=== PATIENT | female | born 1935 | race Caucasian/White ===

== ENCOUNTER 2018-10-05 06:48 | Inpatient (IN) ==
--- NOTE | 2018-10-05 08:02 | PROVIDER DOCUMENTATION ---
HPI-Neurological Disorder - General Chief Complaint: General Adult Stated Complaint: possible seizure Time Seen by Provider: 10/05/18 07:29 Source: patient, family Allergies/Adverse Reactions: Patient Allergies Allergy/AdvReac Type Severity Reaction Status Date / Time No Known Allergies Allergy Verified 10/05/18 07:00 - Seizure First time to have a seizure?: Yes Witnessed seizure?: Yes How many seizure episodes?: 1 Episode details: reports: unknown duration Episode Frequency: no prior episodes Status Epilepticus: No Preceding symptoms/context:: other (LUGGISH OR POOR ENERGY PAST 2 DAYS. NO FEVER,COUGH,N/V/D, MAYBE GEN SEIZURE WITNESS [employer] [facility]. PT CAN GIVE OWN HX NOW.) Character of Seizure: reports: generalized shaking all over Seizure related injury: none Review of Systems - Adult - REVIEW OF SYSTEMS - ADULT Constitutional: reports: no symptoms reported. denies: chills, fever Eyes: reports: no symptoms reported Ears, Nose, Mouth & Throat: reports: no symptoms reported Cardiovascular: reports: no symptoms reported Respiratory: reports: no symptoms reported Gastrointestinal: reports: no symptoms reported Genitourinary: reports: no symptoms reported. denies: frequency, urinary retention, urgency Musculoskeletal: reports: no symptoms reported Integumentary: reports: no symptoms reported Neurological: reports: no symptoms reported. denies: headache/migraines, slurred speech Psychiatric: reports: no symptoms reported, other (HX MILD DEMENTIA) Endocrine: reports: no symptoms reported. denies: excessive sweating, polyuria Hematologic/Lymphatic: reports: no symptoms reported Allergic/Immunologic: reports: no symptoms reported All Other Systems: Reviewed and Negative Past History - Adult - PAST MEDICAL HISTORY-ADULT Review of Records: reports: Old Records Reviewed, Nursing Assessment Review, Medications Reviewed, Social history reviewed & non-contributory. Major Childhood Illnesses: reports: denies history Cardiovascular: reports: denies history Respiratory: reports: denies history Gastrointestinal: reports: denies history Obstetrical/Gynecological: reports: denies history Genitourinary: reports: denies history Musculoskeletal: reports: denies history Neurological: reports: denies history Endocrine/Immune: reports: denies history, other (SJOGREN'S SYNDROME AFFECTING LUNGS WELL EYES AND THROAT) Other Conditions: reports: denies history Physical Exam- Neurological - Physical Exam-Neuro Initial Vital Signs Reviewed: Yes (NOTE INITIAL HYPOTENSION , SL TACHY ARE IMPROVING) General Appearance: appears well, alert, no apparent distress Eye Exam: bilateral eye: normal inspection, PERRL, EOMI HENMT: normocephalic/atraumatic, moist mucous membranes Head Injury: no evidence of injury Neck: non-tender, full range of motion, supple Respiratory: chest non-tender, lungs clear, normal breath sounds Cardiovascular: normal peripheral pulses, regular rate, rhythm, no edema, no JVD , no murmur Abdominal Exam: normal bowel sounds, non tender, soft Extremity: normal range of motion, non-tender, normal gait pricing associate Exam: normal hearing, normal speech, PERRL Motor/Sensory: no motor deficit, no sensory deficit Neurologic: pricing associate II-XII nml as tested, grossly normal, no motor/sensory deficits Integumentary: normal color, normal turgor, warm/dry. negative: cyanosis, diaphoresis, ecchymosis, erythema, swelling Psych/Mental Status: normal mood/affect, normal thought content, normal thought process, oriented x 3 Progress - PLAN OF CARE/RESULTS Progress/Plan/Lab Results: Vital Signs - 8 hr 10/05/18 06:57 10/05/18 07:18 10/05/18 07:32 Temperature 98.4 F Pulse Rate 106 H 109 H 124 H Respiratory Rate 22 23 27 H Blood Pressure 84/58 111/58 113/63 O2 Sat by Pulse Oximetry 92 L 91 L 92 L 10/05/18 08:02 10/05/18 08:52 Temperature Pulse Rate 111 H 122 H Respiratory Rate 21 21 Blood Pressure 105/55 104/59 O2 Sat by Pulse Oximetry 90 L 93 L 10/05/18 08:05 Influenza Screen - Final Nasopharyngeal Laboratory Results - last 24 hr 10/05/18 10/05/18 10/05/18 07:16 07:33 07:33 WBC RBC Hgb Hct MCV MCH MCHC RDW Std Deviation Plt Count MPV Immature Gran % (Auto) Neut % (Auto) Lymph % (Auto) [place] % (Auto) Eos % (Auto) Baso % (Auto) Immature Gran # (Auto) Neut # (Auto) Lymph # (Auto) [place] # (Auto) Eos # (Auto) Baso # (Auto) Sodium 136 Potassium 3.1 L Chloride 95 L Carbon Dioxide 17 L Anion Gap 24 BUN 58 H Creatinine 2.0 H Estimated GFR/1.73 m2 24 BUN/Creatinine Ratio 29 Glucose 91 POC Glucose 102 Calculated Osmolality 288 Calcium 8.3 L Magnesium 2.4 Total Bilirubin 0.30 AST 58 H ALT 24 Alkaline Phosphatase 67 Troponin T Eyy-V-Sclruhpfxuh Pept 1965 H Total Protein 7.1 Albumin 4.1 Globulin 3.0 Albumin/Globulin Ratio 1.4 Urine Source Urine Color Urine Turbidity Urine pH Ur Specific Ozone Urine Protein Ur Glucose (Stick) Ur Ketones (Stick) Urine Blood Urine Nitrite Urine Bilirubin Urobilinogen Dipstick Urine Leukocytes Urine WBC (Auto) Urine RBC (Auto) U Epithel Cells (Auto) Urine Bacteria (Auto) Acetone Level NEGATIVE 10/05/18 10/05/18 10/05/18 07:33 08:05 09:28 WBC 8.78 RBC 4.47 Hgb 12.9 Hct 40.0 MCV 89.5 MCH 28.9 MCHC 32.3 L RDW Std Deviation 14.0 Plt Count 146 MPV 10.6 H Immature Gran % (Auto) 0.5 Neut % (Auto) 85.7 H Lymph % (Auto) 5.7 L [place] % (Auto) 8.0 Eos % (Auto) 0.0 Baso % (Auto) 0.1 Immature Gran # (Auto) 0.04 Neut # (Auto) 7.53 H Lymph # (Auto) 0.50 L [place] # (Auto) 0.70 H Eos # (Auto) 0.00 Baso # (Auto) 0.01 Sodium Potassium Chloride Carbon Dioxide Anion Gap BUN Creatinine Estimated GFR/1.73 m2 BUN/Creatinine Ratio Glucose POC Glucose Calculated Osmolality Calcium Magnesium Total Bilirubin AST ALT Alkaline Phosphatase Troponin T 0.058 Cwl-S-Xvbokavyjqg Pept Total Protein Albumin Globulin Albumin/Globulin Ratio Urine Source CLEAN CATCH Urine Color YELLOW Urine Turbidity HAZY Urine pH 5.5 Ur Specific [place] 1.004 Urine Protein 50 A Ur Glucose (Stick) NEGATIVE Ur Ketones (Stick) NEGATIVE Urine Blood MODERATE A Urine Nitrite NEGATIVE Urine Bilirubin NEGATIVE Urobilinogen Dipstick NORMAL Urine Leukocytes NEGATIVE Urine WBC (Auto) <10 Urine RBC (Auto) 10-20 A U Epithel Cells (Auto) <10 Urine Bacteria (Auto) NEGATIVE Acetone Level Orders Category Date Time Status Cardiac Monitoring DIRECTED Care 10/05/18 07:52 Active Finger Stick Blood Sugar (ED) DIRECTED Care 10/05/18 07:52 Active Saline Loc NOW Care 10/05/18 07:52 Active CHEST-PORTABLE [RAD] Stat Exams 10/05/18 07:[address] HEAD W/O CONTRAST [CT] Stat Exams 10/05/18 07:55 Completed ACETONE SERUM [CHEM] Stat Lab 10/05/18 07:33 Completed BLOOD CULTURE [BLDCUL] Stat Lab 10/05/18 09:57 Received CBC WITH ELECTRONIC DIFF [HEME] Stat Lab 10/05/18 08:05 Completed COMPREHENSIVE METABOLIC PANEL [CHEM] Stat Lab 10/05/18 07:33 Completed COMPREHENSIVE METABOLIC PANEL [CHEM] Stat Lab 10/05/18 09:57 Received INFLUENZA SCREEN A/B Stat Lab 10/05/18 08:05 Completed LACTATE, PLASMA [CHEM] Stat Lab 10/05/18 09:57 Received MAGNESIUM [CHEM] Stat Lab 10/05/18 07:33 Completed PRO B-NATRIURETIC PEPTIDE Stat Lab 10/05/18 07:33 Completed TROPONIN T Stat Lab 10/05/18 07:33 Completed TROPONIN T Stat Lab 10/05/18 09:57 Received URINALYSIS W/POSS RFLX CULT [URINALYSIS] Stat Lab 10/05/18 09:26 Uncollected URINALYSIS W/POSS RFLX CULT [URINALYSIS] Stat Lab 10/05/18 09:28 Completed 0.9% Sodium Chloride Inj [Ns] 1,000 ml Med 10/05/18 09:25 Active IV 999 mls/hr Acetaminophen [Tylenol] Med 10/05/18 09:25 Discontinued 650 mg PO NOW ONE Azithromycin 500 mg/Ns [Zithromax 500 mg/Ns] Med 10/05/18 09:25 Active 500 mg in 250 ml IV NOW CefTRIAXONE [Rocephin] 1 gm Med 10/05/18 09:25 Discontinued 0.9% Sodium Chloride Inj [Ns] 50 ml IV NOW Potassium Chloride 20% Liquid Med 10/05/18 10:15 Once 40 meq PO NOW ONE EKG [EKG] Stat Ther 10/05/18 07:52 Ordered Result Diagrams: 10/05/18 08:05 10/05/18 07:33 - XRAY 1 XRAY Study: Chest Impression: Abnormal (RLL PNEUMONIA) - CT/MRI 1 CT Study: Head Impression: Normal, See EMR Report Comparison with other Films: no changes - CONSULTS/PCP/HOSPITALIST Notification #1 *Consult/PCP/Hospitalist*: CONTRERAS ACCEPTS TO DR DIAL Time Discussed: 10:25 Consult Disposition: Admit Departure - Departure Date of Disposition Decision: 10/05/18 Time of Disposition Decision: 10:26 DIAGNOSIS: Pneumonia, Mild renal insufficiency, Hypokalemia, Hypotension, New onset a-fib Disposition: ADMITTED INPATIENT 09 Certified Medical Emergency: Emergent Condition: Fair Referrals and Follow-Ups: Paola Garza MD [Primary Care Provider] - - Critical Care Note This patient required my direct & personal management of CC.: Yes Total Time (mins): 30 Critical Care Statement: This patient required my direct personal management to treat or rule out processes, the absence of which, could potentiallly result in sudden, clinically significant life or limb threatening deterioration. Attestation - Physician/ ELIGIO Attestation The physician spent face to face time with patient:: Yes Advanced Practice Provider documentation review:: Supervising physician onsite and consulted in the evaluation and care of this patient. The physician did have a face to face encounter with the patient.
[2018-10-05 08:21] LABS: BASO# 0.01 X1000 (0.0-0.2); BASO% 0.1 % (0.0-0.8); HEMOGLOBIN 12.9 g/dL (12.0-16.0); IMM GRAN# 0.04 X1000 (0.0-0.04); IMM GRAN% 0.5 % (0.0-0.5); LYMPH% 5.7 % (20.5-51.1); MCH 28.9 PG (27-31); MCHC 32.3 g/dL (33-37); MCV 89.5 FL (81-99); MPV 10.6 FL (7.4-10.4); NEUT# 7.53 X1000 (1.4-6.5); NEUT% 85.7 % (42.2-75.2); PLT 146 X1000 (130-400); RBC 4.47 XMIL (4.2-5.4); WBC 8.78 X1000 (4.8-10.8)
--- NOTE | 2018-10-05 08:36 | Diag Imaging Result Doc PS360 ---
EXAM: CHEST-PORTABLE 10/05/2018 HISTORY: SEIZURE TECHNIQUE: AP portable at 0828 COMMENT: There is ill-defined alveolar opacity in the right lower lobe which is worse than on 12/15/2013. There are other scattered ill-defined opacities. There is an apparent hiatal hernia. IMPRESSION: Right lower lobe pneumonia. Electronically signed by Cale Dorman 10/05/2018 8:34 AM
--- NOTE | 2018-10-05 08:39 | Diag Imaging Result Doc PS360 ---
EXAM: CT HEAD W/O CONTRAST 10/05/2018 HISTORY: SEIZURE TECHNIQUE: This exam was performed using automated exposure control, adjustment of mA or kV according to patient size, and/or use of iterative reconstruction technique. COMMENT: There is generalized mild cerebral atrophy. There is no evidence of mass effect, bleed, or abnormal extra-axial fluid collection. There are no previous studies available for comparison. There are air-fluid levels in both maxillary sinuses as well as areas of mucosal thickening. There is also some mucosal thickening in the ethmoid air cells. There is fluid and mucosal thickening in both sphenoid sinuses. The calvarium is intact. IMPRESSION: No evidence of acute intracranial disease. Sinusitis as described. Electronically signed by Cale Dorman 10/05/2018 8:37 AM
[2018-10-05 08:41] LABS: ACETONE SERUM NEGATIVE (NEGATIVE)
[2018-10-05 09:10] LABS: AGAP 24; ALB/GLOB RATIO 1.4; ALBUMIN 4.1 g/dL (3.5-5.0); ALKALINE PHOSPHATASE 67 U/L (32-104); BUN 58 mg/dL (8-22); CALCIUM 8.3 mg/dL (8.8-10.2); CHLORIDE 95 mmol/L (98-107); COSMO 288; ESTIMATED GFR 24; GLUCOSE 91 mg/dL (70-104); GOT 58 U/L (10-30); GPT 24 U/L (10-36); MAGNESIUM 2.4 mg/dL (1.5-2.7); POTASSIUM 3.1 mmol/L (3.5-5.1); SODIUM 136 mmol/L (136-145); TCO2 17 mmol/L (25-35); TOTAL PROTEIN 7.1 g/dL (6.3-8.3)
[2018-10-05] MEDS ORDERED: ZITHROMAX 500 MG/NS 500 MG/250 ML IVPB IV ONE (09:25)
[2018-10-05] MEDS ORDERED: NS 1,000 ML IV ONE ×3 (09:25→18:59)
[2018-10-05] MEDS ORDERED: ROCEPHIN 1 GM in NS 50 ML IV ONE (09:25)
[2018-10-05] MEDS ORDERED: TYLENOL PO ONE (09:25)
[2018-10-05 09:31] LABS: URINE SOURCE CLEAN CATCH
[2018-10-05 09:37] LABS: BILIRUBIN URINE NEGATIVE (NEGATIVE); BLOOD URINE MODERATE (NEGATIVE); COLOR YELLOW; GLUCOSE URINE NEGATIVE (NEGATIVE); KETONE URINE NEGATIVE (NEGATIVE); LEUKOCYTES URINE NEGATIVE (NEGATIVE); NITRITE URINE NEGATIVE (NEGATIVE); PH URINE 5.5; PROTEIN URINE 50 mg/dL (NEGATIVE); SP GRAVITY URINE 1.004; TURBIDITY URINE HAZY (CLEAR); UROBILINOGEN URINE NORMAL (NORMAL)
[2018-10-05 09:38] LABS: UR EPITHELIAL CELLS <10 /HPF (<10); URINE BACTERIA NEGATIVE /HPF; URINE WBC <10 /HPF (<10)
[2018-10-05] MEDS ORDERED: POTASSIUM CHLORIDE 20% LIQUID PO ONE (10:15)
[2018-10-05 10:38] LABS: ALB/GLOB RATIO 1.3; CALCIUM 8.5 mg/dL (8.8-10.2); POTASSIUM 3.2 mmol/L (3.5-5.1); TOTAL BILIRUBIN 0.33 mg/dL (0.20-1.00); TOTAL PROTEIN 7.2 g/dL (6.3-8.3)
--- NOTE | 2018-10-05 11:43 | ED EKG INTERP ---
This chart was entered by Luz Reddy Scribe, acting as scribe for Gigi Garza MD. EKG Interpretation - EKG Time of EKG reading by physician:: 07:26 EKG Read and Signed by:: Gigi Garza EKG Interpretation (*Must complete 3 of following elements*): Abnormal Rate: 112 Rhythm: Afib w/ RVR [place]: normal QRS: normal ID Interval: normal ST Wave: normal Attestation - Physician/ ELIGIO Attestation Patient care was provided by Advanced Practice Provider:: No The physician spent face to face time with patient:: Yes Advanced Practice Provider documentation review:: Supervising physician onsite and consulted in the evaluation and care of this patient. The physician did have a face to face encounter with the patient. This chart was documented by the indicated scribe, (Luz Reddy Scribe) and accurately reflects the services I performed and decisions made by me, Gigi Garza MD, as attested by the provider's signature.
[2018-10-05] MEDS: TAMIFLU PO SCH ×2 (11:46→20:14)
[2018-10-05] MEDS ORDERED: CARDIZEM IV ONE (12:23)
[2018-10-05] MEDS ORDERED: NEO-SYNEPHRINE 50 MG in NS 250 ML IV SCH (12:30)
[2018-10-05] MEDS ORDERED: CARDIZEM 125 MG in NS 100 ML IV SCH (12:30)
[2018-10-05] MEDS: MAXIPIME 1 GM in NS 50 ML IV SCH (13:08)
[2018-10-05 13:40] LABS: UR CREAT RANDOM 65.6 mg/dL (11-20)
--- NOTE | 2018-10-05 14:19 | Diag Imaging Result Doc PS360 ---
EXAM: US RENAL 2 (RETROPER) COMPLETE 10/05/2018 HISTORY: víctor TECHNIQUE: Renal ultrasound COMMENT: There are numerous splenic granulomata. There is no evidence of hydronephrosis or mass. The urinary bladder is unremarkable in appearance. The right kidney is 9.3 x 4.8 x 4.5 cm the left is 7.8 x 3.6 x 3.9 cm. IMPRESSION: Renal atrophy. No evidence of obstructive uropathy. Electronically signed by Cale Dorman 10/05/2018 2:17 PM
[2018-10-05 14:30] LABS: ALLEN TEST YES; BE -7.6 mmoll (-3.0-3.0); BLOOD TYPE ARTERIAL; METHB 1.2 % (0.0-1.5); O2(CT) 15.9 mL/dL (15.0-23.0); O2HB 96.6 % (95.0-99.0); PCO2(98.6) 33 mmHg (35-45); PO2(98.6) 101 mmHg (60-100); SAMPLE BLOOD; THB 11.6 g/dL (11.5-17.4); pH(98.6) 7.33 (7.35-7.45)
[2018-10-05 14:31] LABS: MODALITY CANNULA
[2018-10-05 15:11] LABS: CK INDEX 0.6 (0.0-2.5); CK-MB 3.21 ng/mL (0.0-5.0)
[2018-10-05 15:21] LABS: FREE T4 1.06 ng/dL (0.93-1.70); TSH 1.02 uIUmL (0.27-4.20)
[2018-10-05] MEDS ORDERED: KLOR-CON PO ONE (16:04)
--- NOTE | 2018-10-05 16:22 | CONSULTATION ---
DATE OF CONSULTATION: 10/05/2018 Cardiology was consulted for atrial fibrillation. Atrial fibrillation. Patient has pneumonia. Ms. Ibeth Dan lives in an assisted living facility. Was noted to be increasing shortness of breath, was brought to the emergency room. She was in atrial fibrillation and she was to be started on a Cardizem drip however she has spontaneously converted to sinus rhythm and chest x-ray revealed pneumonia. In addition she was positive for influenza. She denies any chest pain. No known previous cardiac history. She complains of some shortness of breath, generalized body ache. There is no palpitations. REVIEW OF SYSTEM: 14-point review of systems was done.GI: There is no history of nausea, vomiting or diarrhea. There is no history of hematemesis or melena. Central nervous system: No focal weakness to suggest CVA, TIA. : There is no dysuria, hematuria. Family noted that she may have had seizure-like activity. She was noted to be sluggish in the last couple of days as well. PAST MEDICAL HISTORY: 1. She has Sjogren syndrome. 2. Mild dementia. 3. Hypertension. 4. COPD. ALLERGIES: She is allergic to erythromycin, penicillin, sulfonamides. HOME MEDICATIONS: Listed include inhalers, donepezil, losartan 100, prednisone 2.5, spironolactone 25, torsemide 20, sertraline 25 . Blood pressure was 97/71 and 113/68. First and second heart sounds were heard. There was no S3 gallop. Respiratory: Normal air entry. There was few scattered wheeze. Abdomen: Was soft, nontender. There was no guarding or rigidity. Bowel sounds were heard. Central nervous system: Alert, was moving extremities. Detailed central nervous system examination not performed. DATA: Electrocardiogram initially revealed atrial fibrillation. Subsequent electrocardiogram revealed normal sinus rhythm with PACs. LABORATORY EXAMINATION: Sodium 136, potassium 3.1, BUN 58, creatinine 2.0, proBNP 1965. Two sets of troponin were negative. ASSESSMENT AND PLAN: Ms Ibeth Dan is 83-year-old lady who has dementia, hypertension, chronic obstructive pulmonary disease is admitted with increasing shortness of breath, questionable seizure-like activity. She had a head CT done which was unremarkable. She tested positive for flu A. Chest x-ray reports right lower lobe pneumonia. PROBLEM LIST: 1. She has pneumonia that could have triggered the atrial fibrillation. In addition she is likely to be dehydrated, has renal insufficiency, not sure of the previous renal status. She is being hydrated and we will replete her potassium as well. 2. Currently she is in sinus rhythm. I have not added any medications, blood pressure was slightly low. We will follow hospital course. 3. We will get an echocardiogram to assess cardiac and valvular function. In addition, I will get another set of cardiac enzymes. 4. Hypertension. Medication she was on Cozaar and Aldactone at home. They are held at the moment given her low blood pressure and renal insufficiency. We will adjust medications as she progresses. Thank you for the consult. Will follow hospital course. cc: Costa Mackay MD
--- NOTE | 2018-10-05 17:05 | HISTORY AND PHYSICAL ---
CHIEF COMPLAINT: Encephalopathy. HISTORY OF PRESENT ILLNESS: Ms. Dan is an 83-year-old female with a history of emphysema, hypertension, Sjogren's syndrome, hyperlipidemia, who presents from [facility] with encephalopathy. Apparently she was found this morning in her closet on the ground, altered, with loss of bladder continence. At this time, the patient does not have any recollection of what happened between last night and this morning, and she is disoriented. Family at the bedside are only able to give minimal assistance. She was brought to the ER for evaluation. She had a head CT done which did not show anything acute, sinusitis was noted. Chest x-ray showed a right lower lobe pneumonia, and flu test came back positive for influenza type A. She is also noted to be in atrial fibrillation with a rapid ventricular response which she has no history of. She denies any chest pain at this time. No nausea or vomiting and no fever, but again, she is a very poor historian. She is noted to be slightly hypotensive and tachycardic, so we will need to put her in the ICU for further treatment and evaluation. PAST MEDICAL HISTORY: 1. Sjogren's syndrome. 2. Hyperlipidemia. 3. Hypertension. 4. Question of dementia. 5. Emphysema. 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 SOCIAL HISTORY: No tobacco, alcohol or drug use. She lives at [facility]. FAMILY HISTORY: Unknown. REVIEW OF SYSTEMS: Unable to obtain. ALLERGIES: Erythromycin, penicillin, sulfamethoxazole and trimethoprim. HOME MEDICATIONS: Yet to be compiled. PHYSICAL EXAMINATION: VITAL SIGNS: Blood pressure is 84/58, heart rate ranging from 120 to 150, respiratory rate is 22, O2 saturation is 92% on 4 L. Temperature is 98.4. GENERAL: This is a chronically ill and disheveled appearing 83-year-old female lying in the hospital bed in no acute distress. NEUROLOGICAL: She is awake, somewhat lethargic, opens her eyes to verbal stimulus. Follows commands without focal deficits but is disoriented. HEENT: Head is atraumatic and normocephalic. Pupils are equal, round and reactive to light. Oral mucosa is extremely dry. NECK: Trachea is midline. There is no JVD. CHEST: Diminished with some rhonchi noted over the right lung base. CARDIOVASCULAR: Tachycardic and irregular. S1 and S2 are noted. GASTROINTESTINAL: Soft, nondistended and nontender. Bowel sounds are active. EXTREMITIES: No edema. Pulses are trace bilaterally. DIAGNOSTIC DATA: Head CT shows chronic changes. EKG is atrial fibrillation with RVR. Chest x- ray with ill-defined infiltrate in the right lower lung base, hiatal hernia. WBC is 8.78, hemoglobin 12.9, hematocrit 40, platelet count 146. Sodium is 134, potassium 3.2, chloride 94, CO2 is 19, anion gap is 21, BUN is 60, creatinine 2, glucose 81, calcium 8.5, magnesium 2.4, AST is 63, ALT is 25, alkaline phosphatase 68. Troponin is 0.053. ProBNP is 1965. Albumin is 4. UA is negative. Acetone level is negative. ASSESSMENT AND PLAN: 1. Toxic metabolic encephalopathy. The patient has multiple derangements including influenza, pneumonia, atrial fibrillation with rapid ventricular response, volume depletion, and she likely has underlying dementia. We will treat all of the underlying conditions, continue IV fluids. Monitor her neuro status. If no improvement, may consider MRI. 2. New onset atrial fibrillation with a rapid ventricular response. She denies any chest pain. We will start her on a Cardizem bolus and drip. She is slightly hypotensive, so she may need Naun-Synephrine backup for blood pressure maintenance. We will trend cardiac enzymes, check thyroid function, consult Cardiology. Check an echocardiogram once her heart rate is more stable. While she does have an elevated CHADs score, will defer anticoagulation to cardiology, she is likely a poor assisted anticoagulation patient. 3. Influenza A with superimposed community acquired pneumonia. We have added Tamiflu and will continue with Rocephin and azithromycin. Continue breathing treatments. Aggressive pulmonary toilet. 4. Acute kidney injury. Continue IV fluids. Check urine studies and renal ultrasound. 5. Volume depletion. Continue IV fluids and continue to monitor her I's and O's and overall volume status. 6. Sjogren's syndrome. Aware. 7. DVT prophylaxis with SCDs Further recommendations to follow. Dictated by JOSHUA Watson for Rayshawn Kitchen MD cc: JOSHUA Watson MD I have and examined Ms Dan today. I have also reviewed her labs and imaging studies. Ms Dan presents with AMS due to global encephalopathy, right lower lobe pneumonia and influenza A positive. She looks dry and has gone into Afib RVR. Will admit to ICU, cardiology consulted. I agree with the above HPI and the plan reflects my opinion discussed with the PAIRING MACHINE OPERATOR. WOLF
[2018-10-05 20:05] LABS: CK INDEX 0.7 (0.0-2.5); CK-MB 4.42 ng/mL (0.0-5.0)
[2018-10-06] MEDS: MAXIPIME 1 GM in NS 50 ML IV SCH ×2 (00:20→12:00)
[2018-10-06] MEDS ORDERED: NS 500 ML IV SCH (01:15)
[2018-10-06 01:56] LABS: CK INDEX 0.9 (0.0-2.5); CK-MB 6.41 ng/mL (0.0-5.0)
[2018-10-06 05:31] LABS: BASO# 0.01 X1000 (0.0-0.2); BASO% 0.1 % (0.0-0.8); EOS# 0.02 X1000 (0.0-0.7); EOS% 0.3 % (0.0-10.0); HEMATOCRIT 42.7 % (37.0-47.0); HEMOGLOBIN 13.6 g/dL (12.0-16.0); IMM GRAN# 0.03 X1000 (0.0-0.04); IMM GRAN% 0.4 % (0.0-0.5); LYMPH# 0.92 X1000 (1.2-3.4); LYMPH% 12.6 % (20.5-51.1); MCH 29.6 PG (27-31); MCHC 31.9 g/dL (33-37); MONO# 0.61 X1000 (0.11-0.59); MONO% 8.3 % (1.7-9.3); MPV 10.3 FL (7.4-10.4); NEUT# 5.72 X1000 (1.4-6.5); NEUT% 78.3 % (42.2-75.2); PLT 148 X1000 (130-400); RBC 4.59 XMIL (4.2-5.4); RDW 14.8 % (11.5-14.5); WBC 7.31 X1000 (4.8-10.8)
[2018-10-06 05:46] LABS: CREATININE 1.8 mg/dL (0.5-0.9); MAGNESIUM 2.6 mg/dL (1.5-2.7); POTASSIUM 4.5 mmol/L (3.5-5.1)
[2018-10-06] MEDS: ASPIRIN PO SCH ×2 (07:51→09:25)
[2018-10-06] MEDS: TAMIFLU PO SCH ×3 (07:51→21:58)
[2018-10-06] MEDS: SODIUM BICARBONATE 8.4% 100 MEQ in D5W 1,000 ML IV SCH (09:25)
--- NOTE | 2018-10-06 10:21 | PROGRESS NOTE ---
DATE: 10/06/2018 SUBJECTIVE: This morning, Ms. Dan refers to be doing a lot better. The daughter was at the bedside at the time of the encounter. Per the nursing staff, she has had a couple of loose bowel movements today. OBJECTIVE: Vital signs: Blood pressure is 105/55, pulse is 86, respiration is 10. temperature is 97.6. General: Ms. Dan is an 83-year-old female. She is in bed. She is not in any cardiopulmonary distress. HEENT: Mucosa is pink and dry, anicteric and acyanotic. Neck: Supple. There is no JVD. Chest: Air entry is bilaterally reduced. There are crepitations posteriorly, more so to the right posterior lung field. Cardiovascular: Regular rate and rhythm. No murmurs, no rubs, no gallops. Abdomen: Soft. There is an old midline surgical scar. The abdomen is tympanic to percussion. Bowel sounds are present, but slightly hypoactive. Extremities: No pedal edema. CLINICAL RESEARCH SCIENTIST: Patient is awake, alert, oriented. There is no focal neurological deficit. LABORATORY DATA: Hematology: WBC 7.31, hemoglobin is 13.6, platelet count of 148,000. Chemistry: Also reviewed. Sodium is 141, potassium is 4.5, chloride is 111, bicarb is 16, gap of 14, creatinine is 1.8, which is improving. So far, influenza testing was A positive. Blood cultures have still been negative. The sputum culture is showing gram-negative cocci 1+, some gram-positive cocci 2+ and gram-negative rods, a few. IMAGING: A chest x-ray which was done on admission shows right lower lobe pneumonia. ASSESSMENT: 1. Altered mental status on presentation, likely due to a combination of infectious versus metabolic etiologies. The patient's mentation has significantly improved. 2. New onset of atrial fibrillation rapid ventricular response. We think this is all triggered by the infection. The patient is currently in sinus rhythm. 3. Sepsis secondary to underlying pneumonia, improved. 4. Influenza A. The patient is on Tamiflu. 5. Right lower lobe pneumonia. The patient is currently on cefepime. I have added Zyvox for MRSA coverage just to be sure that this is not a Staph superimposed influenza pneumonia. 6. Acute on chronic renal failure. We are going to continue with the IV fluids. Creatinine seems to be on downward trend. I have discontinued the normal saline because chloride is high. I have changed the fluid to D5 with bicarb. 7. History of Sjogren noted. 8. Clinical volume depletion. We will continue with IV fluids. 9. Generalized weakness and deconditioning. Physical Therapy will be consulted. 10. Diarrhea. Unsure if this is a side effect of the current antibiotics or is an overflow incontinence or infectious. We are going to sample it for Clostridium difficile and we will do a KUB to rule out possibility of ileus or severe constipation with overflow incontinence and go from there. 11. Non-gap metabolic acidosis. This will be corrected with a bicarb infusion. PLAN: So in general, I think Ms. Dan is doing a lot better. Mentation has significantly improved. The daughter at the bedside thinks that the mom has gotten better. We are going to transfer her from the ICU to regular medical floor and get Physical Therapy to start working with her. Continue with the current antibiotic coverage and await for the cultures. cc: Rayshawn Kitchen MD
--- NOTE | 2018-10-06 11:42 | Diag Imaging Result Doc PS360 ---
EXAM: KUB ABDOMEN 10/06/2018 HISTORY: SBO TECHNIQUE: KUB COMMENT: There is some gas and fecal debris throughout the colon. There has been previous cholecystectomy. The stomach and small bowel are not distended. There are no previous studies available for comparison. There is curvature of the thoracolumbar spine with convexity to the right. IMPRESSION: No evidence of small bowel obstruction. Electronically signed by Cale Dorman 10/06/2018 11:39 AM
[2018-10-06] MEDS: ZYVOX PO SCH ×2 (11:59→21:59)
[2018-10-06] MEDS ORDERED: BLISTEX MEDICATED BERRY LIP BALM TOP PRN (13:33)
[2018-10-07] MEDS: SODIUM BICARBONATE 8.4% 100 MEQ in D5W 1,000 ML IV SCH (02:42)
[2018-10-07] MEDS: MAXIPIME 1 GM in NS 50 ML IV SCH ×2 (02:44→14:09)
[2018-10-07 07:27] LABS: BASO# 0.01 X1000 (0.0-0.2); BASO% 0.3 % (0.0-0.8); EOS# 0.02 X1000 (0.0-0.7); EOS% 0.6 % (0.0-10.0); HEMATOCRIT 37.6 % (37.0-47.0); HEMOGLOBIN 12.1 g/dL (12.0-16.0); IMM GRAN# 0.02 X1000 (0.0-0.04); IMM GRAN% 0.6 % (0.0-0.5); LYMPH# 0.54 X1000 (1.2-3.4); LYMPH% 16.8 % (20.5-51.1); MCHC 32.2 g/dL (33-37); MCV 90.2 FL (81-99); MONO# 0.45 X1000 (0.11-0.59); MPV 10.7 FL (7.4-10.4); NEUT# 2.17 X1000 (1.4-6.5); NEUT% 67.7 % (42.2-75.2); PLT 128 X1000 (130-400); RBC 4.17 XMIL (4.2-5.4); RDW 14.4 % (11.5-14.5); WBC 3.21 X1000 (4.8-10.8)
[2018-10-07 07:52] LABS: CALCIUM 8.7 mg/dL (8.8-10.2); CREATININE 1.2 mg/dL (0.5-0.9); MAGNESIUM 2.5 mg/dL (1.5-2.7); POTASSIUM 3.9 mmol/L (3.5-5.1)
[2018-10-07] MEDS: VITAMIN B-12 PO SCH (08:40)
[2018-10-07] MEDS: VITAMIN D PO SCH (08:40)
[2018-10-07] MEDS: TAMIFLU PO SCH ×2 (08:40→21:30)
[2018-10-07] MEDS: ZYVOX PO SCH ×2 (08:40→21:30)
[2018-10-07] MEDS: PREDNISONE PO SCH (08:40)
[2018-10-07] MEDS: ASPIRIN PO SCH (08:41)
--- NOTE | 2018-10-07 08:46 | EKG Report ---
Test Performed on : 10/05/2018 07:11:10 AM Test Reason : POSS SEIZURE Blood Pressure : / mmHG Vent. Rate : 112 BPM Atrial Rate : 131 BPM P-R Int : 000 ms QRS Dur : 078 ms QT Int : 320 ms P-R-T Axes : 000 001 048 degrees QTc Int : 436 ms Atrial fibrillation. with rapid ventricular response. Abnormal ECG No previous ECGs available Unconfirmed Result
--- NOTE | 2018-10-07 12:31 | PROGRESS NOTE ---
DATE: 10/07/2018 SUBJECTIVE: This morning Ms. Dan refers to be doing a lot better. She feels stronger. OBJECTIVE: Vital signs: Blood pressure is 121/61, pulse of 60, respiration is 18, temperature 98.1 degrees. General: Ms. Dan is an 83-year-old female. She is in bed. She is not in any cardiopulmonary distress. Mucosa is pink, slightly dry. Anicteric. Acyanotic. Neck: Supple. Chest: Air entry was bilaterally reduced. There are still some crackles in the right posterior lung field, but no rhonchi. Cardiovascular: Regular rate and rhythm. No murmurs, no rubs, no gallops. Abdomen: Soft. There is an old midline surgical scar. Bowel sounds are present. Slightly hypoactive. Extremities: No pedal edema. CAT HOOKER: Patient is awake, alert, oriented. There is no focal neurological deficit. Patient's I Os, urine output was 450. None was documented yesterday. Bowel movements multiple yesterday. ASSESSMENT: 1. Altered mental status on presentation secondary to global encephalopathy, improved. 2. New onset of atrial fibrillation rapid ventricular rate, presumably triggered by infection. Patient is currently in sinus. Was evaluated by Cardiology. 3. Sepsis secondary to underlying pneumonia improved. 4. Influenza A .the patient is on Tamiflu for a total of 5 days. 5. Right lower lobe pneumonia. So far, blood cultures have been negative. However, the sputum is growing gram-negative pablo. We are still awaiting for the ID and sensitivity and titrate the antibiotics accordingly. 6. Acute on chronic renal failure. Creatinine is down to 1.2 which is her baseline. IV fluids have been discontinued. Patient has been advised to continue adequate oral hydration. 7. Clinical volume depletion improved. 8. History of Sjogren noted. 9. Generalized weakness and deconditioning. Physical therapy has been consulted. 10. [place] metabolic acidosis has been corrected with IV fluids. Bicarb is about 21. We will start the patient on oral bicarb therapy. PLAN: In general, Ms. Dan is an 83-year-old female who lives at assisted living presented to our hospital for the past 2 days mainly because of altered mental status and shortness of breath. Patient was found to be septic, pneumonia and influenza A positive; also dehydration she has significantly improved during the hospital course. She is still on antibiotics. IV fluids have been discontinued this morning. She is getting physical therapy. DISPOSITION: In terms of disposition Ms. Dan is from assisted living, so we will get physical therapy to reevaluate her today to see if she will be able to go back to the assisted living. Rehab consultation has also been placed to the social work case manager just in case Ms. Dan cannot go back to the assisted living from the hospital. The daughter was at the bedside today and we discussed everything. She is also okay with Ms. Dan going to rehab tomorrow or go back to the assisted living if she is physically strong. cc: Rayshawn Kitchen MD MTDD
--- NOTE | 2018-10-07 12:41 | EKG Report ---
Test Performed on : 10/07/2018 12:33:27 PM Test Reason : 12 lead / heart pauses Blood Pressure : / mmHG Vent. Rate : 065 BPM Atrial Rate : 061 BPM P-R Int : 208 ms QRS Dur : 076 ms QT Int : 400 ms P-R-T Axes : 000 005 031 degrees QTc Int : 416 ms Sinus rhythm. with premature atrial complexes. Septal infarct , age undetermined Abnormal ECG When compared with ECG of 05-OCT-2018 13:08, (Unconfirmed) premature atrial complexes. are now present OK interval has decreased Vent. rate has decreased BY 33 BPM Septal infarct is now present Unconfirmed Result
--- NOTE | 2018-10-07 13:07 | EKG Report ---
Test Performed on : 10/05/2018 1:08:18 PM Test Reason : SEIZURE Blood Pressure : / mmHG Vent. Rate : 098 BPM Atrial Rate : 098 BPM P-R Int : 272 ms QRS Dur : 076 ms QT Int : 338 ms P-R-T Axes : 048 002 034 degrees QTc Int : 431 ms Sinus rhythm. with marked sinus arrhythmia. with 1st degree AV block. Otherwise normal ECG When compared with ECG of 05-OCT-2018 07:11, (Unconfirmed) Sinus rhythm. has replaced Atrial fibrillation. Unconfirmed Result
--- NOTE | 2018-10-07 13:51 | ECHO REPORT ---
ORDER DATE: 10/06/2018 ECHOCARDIOGRAPHIC MEASUREMENTS: 1. Interventricular septum 0.7. 2. Left ventricular posterior wall 0.7. 3. Diastolic diameter 3.4. 4. Left atrium 3.5. 5. Aorta 3.4. SUMMARY OF 2-DIMENSIONAL IMAGIN. Technically suboptimal study. Poor acoustic window. 2. Aortic valve leaflets were trileaflet. Mitral valve was normal. Tricuspid valve was normal. Peak velocity across the aortic valve less than 2 m/sec. There is no aortic stenosis or regurgitation. Mitral valve was normal. There was mitral annular calcification. There was mild mitral regurgitation. Mild tricuspid regurgitation. Peak velocity across the tricuspid valve was 2.4 m/sec. Normal left ventricular cavity size. Estimated ejection fraction of 55%. Endocardium not well visualized in all views. 3. There was left atrial enlargement. 4. Technically suboptimal study. Poor acoustic window. 5. There was no pericardial effusion. cc: Costa Mackay MD
[2018-10-08] MEDS: MAXIPIME 1 GM in NS 50 ML IV SCH ×2 (00:48→13:07)
[2018-10-08 06:46] LABS: BASO# 0.01 X1000 (0.0-0.2); BASO% 0.3 % (0.0-0.8); HEMATOCRIT 34.7 % (37.0-47.0); HEMOGLOBIN 11.2 g/dL (12.0-16.0); IMM GRAN# 0.03 X1000 (0.0-0.04); IMM GRAN% 0.8 % (0.0-0.5); LYMPH# 0.89 X1000 (1.2-3.4); MCHC 32.3 g/dL (33-37); MCV 89.9 FL (81-99); MONO# 0.66 X1000 (0.11-0.59); MONO% 17.1 % (1.7-9.3); MPV 10.6 FL (7.4-10.4); NEUT# 2.28 X1000 (1.4-6.5); NEUT% 58.8 % (42.2-75.2); PLT 114 X1000 (130-400); RBC 3.86 XMIL (4.2-5.4); RDW 14.3 % (11.5-14.5); WBC 3.87 X1000 (4.8-10.8)
[2018-10-08 07:08] LABS: CALCIUM 8.8 mg/dL (8.8-10.2); MAGNESIUM 2.4 mg/dL (1.5-2.7); POTASSIUM 3.7 mmol/L (3.5-5.1)
--- NOTE | 2018-10-08 07:51 | Diag Imaging Result Doc PS360 ---
CHEST-PORTABLE - 10/08/2018 INDICATION: dyspnea COMPARISON: 10/05/2018 FINDINGS: There is mild worsening in the coarse infiltrate in the right lung base. There is stable cardiomegaly and pulmonary vascular congestion. No pneumothorax or significant pleural effusion. IMPRESSION: Worsening in the focal infiltrate in the right lung base suspicious for pneumonia or aspiration. Electronically signed by Josef Dow 10/08/2018 7:49 AM
[2018-10-08] MEDS: ZYVOX PO SCH ×2 (11:35→22:10)
[2018-10-08] MEDS: ASPIRIN PO SCH (11:36)
[2018-10-08] MEDS: VITAMIN B-12 PO SCH (11:36)
[2018-10-08] MEDS: TAMIFLU PO SCH ×2 (11:36→22:10)
[2018-10-08] MEDS: PREDNISONE PO SCH (11:36)
[2018-10-08] MEDS: VITAMIN D PO SCH (11:36)
--- NOTE | 2018-10-08 18:06 | PROGRESS NOTE ---
DATE: 10/08/2018 Dr. Paola Garza is her physician. Presented on 10/05/2018 with confusion, encephalopathy. She has a history of emphysema, hypertension, Sjogren syndrome, hyperlipidemia. Presented from [facility] with encephalopathy. She was found the morning of admission in her closet on the ground altered with loss of bladder continence. She did not have any recollection of what happened the night before disoriented. Patient brought her to the emergency room. X-ray showed right lower lobe pneumonia. Flu test came back positive for influenza A. Noted to be in atrial fibrillation with rapid ventricular response. No history of atrial fibrillation. So once again PAST MEDICAL HISTORY: 1. Sjogren syndrome. 2. Hyperlipidemia. 3. Hypertension. 4. Question of dementia. 5. Emphysema. PAST SURGICAL HISTORY: 1. Appendectomy. 2. Hysterectomy as well as a benign tumor in her abdomen. So admitted with toxic metabolic encephalopathy and found on influenza screen she was positive for influenza A. EXAM: Her exam today this morning she is feeling better. She is still pretty weak had not walked much. Temperature 98.3 degrees, pulse 59, respirations 18, blood pressure 127/64. Pupils are equal and round. Lungs are clear in all lung parker anterolateral. Cardiovascular regular rate without murmur or S3. Abdomen is soft. Skin is warm and dry. Urine output was 2400 mL. Her chest x-ray from this morning worsening and a focal infiltrate in the right lung base suspicious for pneumonia or aspiration. ASSESSMENT AND PLAN: 1. Altered mental status on presentation secondary to global encephalopathy which is improved. 2. New onset of atrial fibrillation, rapid ventricular rate presumably triggered by infection currently back in sinus rhythm. 3. Sepsis secondary to line pneumonia which improved. 4. Influenza A on Tamiflu for a total 5 days. 5. Right lower lobe pneumonia. Blood cultures have been negative. However sputum is growing gram negative pablo still. ID is following. 6. Acute on chronic renal failure. Creatinine has come down to 1.2 which is baseline. 7. Clinical volume depletion. Clinically she had volume depletion on presentation. 8. History of Sjogren syndrome. 9. Generalized weakness, deconditioning. Continue physical therapy. 10. Non gap metabolic acidosis which has been corrected with fluids, so they are discussing whether go to rehab and will continue physical therapy. She is making marked improvement so we will kind of assess where we are after another 48 hours treatment. She is from assisted living so she will need be able to walk around and get around and bear weight well before she tries to go back. Review of her orders she is on Zyvox 600 mg p.o. q.12 hours, Fosamax 70 mg p.o. every week, aspirin 81 mg a day, calcium carbonate 500 mg p.o. q.6 hours p.r.n., cefepime 1 g IV q.12, Tamiflu 75 mg b.i.d., prednisone 2.5 mg daily. cc: Jozef Ellis MD MTDD
[2018-10-09] MEDS: MAXIPIME 1 GM in NS 50 ML IV SCH ×2 (00:02→12:06)
[2018-10-09] MEDS: TUMS PO PRN ×2 (00:09→21:59)
[2018-10-09] MEDS ORDERED: BENTYL PO ONE (00:16)
[2018-10-09 07:19] LABS: CALCIUM 9.5 mg/dL (8.8-10.2); MAGNESIUM 2.2 mg/dL (1.5-2.7); POTASSIUM 3.7 mmol/L (3.5-5.1)
[2018-10-09] MEDS: TAMIFLU PO SCH ×2 (12:06→21:46)
[2018-10-09] MEDS: PREDNISONE PO SCH (12:06)
[2018-10-09] MEDS: VITAMIN D PO SCH (12:07)
[2018-10-09] MEDS: VITAMIN B-12 PO SCH (12:07)
[2018-10-09] MEDS: ASPIRIN PO SCH (12:08)
[2018-10-09] MEDS: ZYVOX PO SCH (12:08)
--- NOTE | 2018-10-09 14:21 | DISCHARGE SUMMARY ---
ADMISSION DATE: 10/05/2018 DISCHARGE DATE: 10/09/2018 HISTORY AND HOSPITAL COURSE: Ms. Dan was admitted on 10/05/2018, came in with complaints of confusion and encephalopathy. She is followed by Dr. Paola Garza. She is an 83-year-old female with a history of emphysema, hypertension, Sjogren syndrome, hyperlipidemia, presented from [facility] with encephalopathy, found in the morning in her closet on the ground with loss of bladder continence and confusion, no recollection what happened, so was brought into the emergency room for evaluation. X-ray showed a possible right lower lobe pneumonia. Flu test came back positive for influenza A. She was given some Tamiflu and seemed to improve fairly quickly. She is eating, although her appetite she says is not real good. She had a new onset of atrial fibrillation with rapid ventricular response and they put her on some Cardizem. The enzymes were negative. Her CHADS score was elevated so they felt she would be a poor candidate for anticoagulation. Rate seemed to be well controlled. She felt like she needed to go to rehab for a while because she was still pretty weak and puny. She had acute kidney injury on arrival. We felt that she was a little bit dehydrated and this improved with fluids. Creatinine down to baseline at 1.0. Her blood counts looked good. Hematocrit stable at 34, hemoglobin 11.2. So, felt she was ready go to rehab on 10/09/2018. DISCHARGE MEDICATIONS: Will discharge her on Fosamax, she will take her 70 mg p.o. once a week, aspirin 81 mg a day, calcium carbonate 500 mg q.6 hours p.r.n. indigestion, vitamin D3 2000 units a day, vitamin B12 1000 mg daily, Tamiflu 75 mg b.i.d., prednisone she was getting 2.5 mg daily, and she takes Bentyl p.r.n. Blood cultures and sputum cultures unremarkable. Follow-up chest x-ray on 10/05, infiltrate still there. I thought we would check another chest x-ray today and we will discharge her to [facility]. cc: Jozef Ellis MD
--- NOTE | 2018-10-09 15:56 | Diag Imaging Result Doc PS360 ---
EXAM: CHEST-2 VIEWS 10/09/2018 HISTORY: pneumonia TECHNIQUE: PA and lateral chest COMMENT: Compared to 10/08/2018 the lungs are much better expanded. There is still ill-defined opacity over the right base. This has improved. IMPRESSION: Improved right lower lobe bronchopneumonia. Electronically signed by Cale Dorman 10/09/2018 3:54 PM
--- NOTE | 2018-10-09 16:03 | PROGRESS NOTE ---
DATE: 10/09/2018 ADDENDUM SUBJECTIVE: She is feeling better, but I did want to get another chest x-ray and give her another 24 hours of the IV antibiotics. Hope to get her to [facility] tomorrow. She is stronger. Her appetite is not very good. OBJECTIVE: Vital signs: Temperature 98.5 degrees, pulse 74, respirations 16, blood pressure 114/66. HEENT: Pupils are equal and round. Lungs: Clear in all lung parker. Cardiovascular: Regular rhythm and rate without murmur or S3. Abdomen: Soft. Skin: Warm and dry. Output: Urine output was 1700 mL. ASSESSMENT AND PLAN: 1. She presented with altered mental status and global encephalopathy. This is improved. Mentation is back to baseline. 2. New onset atrial fibrillation. Rate is controlled. Plan to continue present medication. 3. Sepsis secondary to pneumonia, which has resolved. 4. Influenza A. She took a total of 5 days of Tamiflu. 5. Right lower lobe pneumonia. Blood cultures were negative and clinically improved. I think we can probably stop her antibiotics tomorrow. She has had no growth. Sputum did grow a gram- negative pablo. Blood cultures were negative. cc: Jozef Ellis MD
[2018-10-10 07:20] LABS: CALCIUM 9.8 mg/dL (8.8-10.2); CREATININE 0.9 mg/dL (0.5-0.9); POTASSIUM 3.8 mmol/L (3.5-5.1)
[2018-10-10] MEDS: PREDNISONE PO SCH (09:47)
[2018-10-10] MEDS: VITAMIN D PO SCH (09:48)
[2018-10-10] MEDS: TAMIFLU PO SCH (09:48)
[2018-10-10] MEDS: ASPIRIN PO SCH (09:48)
[2018-10-10] MEDS: VITAMIN B-12 PO SCH (09:48)
--- NOTE | 2018-10-10 10:40 | DISCHARGE SUMMARY ---
ADMISSION DATE: 10/05/2018 DISCHARGE DATE: HISTORY AND HOSPITAL COURSE: Came in with complaints of confusion, encephalopathy. She is a patient of Dr. Paola Garza. An 83-year-old, female with a history of emphysema, hypertension, Sjogren's syndrome, and hyperlipidemia. Presented from [facility] with confusion and encephalopathy. They found her laying on the floor in the closet, loss of bladder continence, and some confusion. Brought to the emergency room. X-ray showed possible right lower lobe pneumonia. It looked like it was a pneumonia so treated with antibiotics. She also was positive for influenza A so suspect she had influenza and then followed up with a pneumonia. She also presented with atrial fibrillation, rapid ventricular response. Her enzymes were negative. Her JIMENA score was slightly elevated. I felt she would be high risk for anticoagulant. She showed continued improvement with antibiotics. I felt like she was doing much better. Still weak and felt she would benefit from going to rehab for a week or two so plan is to go to [facility]. Her chest x-ray on 10/09/2018 showed marked improvement and clinically. I think we can stop her antibiotics. DISCHARGE MEDICATIONS: She will be on Fosamax 70 mg p.o. once a week, aspirin 81 mg a day, calcium carbonate she can use which is Tums as needed, vitamin D3 2000 units a day, vitamin B12 1000 a day, Tamiflu 75 mg b.i.d., prednisone getting about 2.5 mg a day, and Benadryl p.r.n. cc: Jozef Ellis MD
[2018-10-10 11:29] VITALS: BP 137/75
[2018-10-12] MEDS ORDERED: FOSAMAX PO SCH (06:00)
== END 2018-10-10 13:55 | DRG 871 ==
LOC: SUPCPDRO → ED 06:48 → SUATTDRO 12:04 → EDIPHOLD 12:04 → ICU 15:06 → 4N 10-06 13:10
PROVIDERS: ATTEND Emergency Medicine
CPT/HCPCS: 70450; 71010; 71020; 71045; 71046; 74000; 74018; 76770; 80048; 80053; 81001; 82009; 82550; 82553; 82570; 82607; 82746; 82805; 82948; 83605; 83735; 83880; 83935; 84300; 84439; 84443; 84484; 85025; 87040; 87070; 87077; 87186; 87205; 87275; 87276; 87804; 93005; 93010; 93306; 94761; 97116; 97163; 97530; A9270; J0456; J0692; J0696; J2370; J7030; J7040; J7050; J7070; J7506; J7512; XXXXX

== ENCOUNTER 2018-11-19 11:36 | Inpatient (IN) ==
--- NOTE | 2018-11-19 12:29 | EKG Report ---
Test Performed on : 11/19/2018 11:58:29 AM Test Reason : chest pain Blood Pressure : / mmHG Vent. Rate : 130 BPM Atrial Rate : 122 BPM P-R Int : 000 ms QRS Dur : 076 ms QT Int : 316 ms P-R-T Axes : 000 006 038 degrees QTc Int : 465 ms Atrial fibrillation. with rapid ventricular response. Minimal voltage criteria for LVH, may be normal variant Septal infarct (cited on or before 07-OCT-2018) Abnormal ECG When compared with ECG of 07-OCT-2018 12:33, Atrial fibrillation. has replaced Sinus rhythm. Vent. rate has increased BY 65 BPM Unconfirmed Result
[2018-11-19 12:37] LABS: URINE SOURCE CLEAN CATCH
[2018-11-19 12:44] LABS: BILIRUBIN URINE NEGATIVE (NEGATIVE); BLOOD URINE MODERATE (NEGATIVE); COLOR YELLOW; GLUCOSE URINE NEGATIVE (NEGATIVE); KETONE URINE NEGATIVE (NEGATIVE); LEUKOCYTES URINE NEGATIVE (NEGATIVE); NITRITE URINE NEGATIVE (NEGATIVE); PROTEIN URINE TRACE mg/dL (NEGATIVE); SP GRAVITY URINE 1.007; TURBIDITY URINE CLEAR (CLEAR); UROBILINOGEN URINE NORMAL (NORMAL)
[2018-11-19 12:46] LABS: BASO# 0.02 X1000 (0.0-0.2); BASO% 0.1 % (0.0-0.8); HEMATOCRIT 34.5 % (37.0-47.0); HEMOGLOBIN 10.8 g/dL (12.0-16.0); IMM GRAN# 0.06 X1000 (0.0-0.04); IMM GRAN% 0.3 % (0.0-0.5); LYMPH# 0.29 X1000 (1.2-3.4); LYMPH% 1.6 % (20.5-51.1); MCH 27.7 PG (27-31); MCHC 31.3 g/dL (33-37); MCV 88.5 FL (81-99); MONO# 1.38 X1000 (0.11-0.59); MONO% 7.4 % (1.7-9.3); MPV 9.1 FL (7.4-10.4); NEUT# 16.89 X1000 (1.4-6.5); NEUT% 90.6 % (42.2-75.2); PLT 387 X1000 (130-400); RDW 14.9 % (11.5-14.5); UR EPITHELIAL CELLS <10 /HPF (<10); URINE BACTERIA NEGATIVE /HPF; URINE WBC <10 /HPF (<10); WBC 18.64 X1000 (4.8-10.8)
--- NOTE | 2018-11-19 12:46 | Diag Imaging Result Doc PS360 ---
EXAM: CHEST-1 VIEW 11/19/2018 HISTORY: chest pain TECHNIQUE: AP portable upright at 1230 COMMENT: The inspiration is less optimal than on 10/09/2018. There are coarse interstitial opacities throughout both lungs more so on the lower lobes. This appearance is accentuated by the poor inspiration. Compared to 10/08/2018 there is still less opacification of the right base than on the previous study. IMPRESSION: Mild cardiomegaly and pulmonary fibrosis. Electronically signed by Cale Dorman 11/19/2018 12:43 PM
[2018-11-19 12:49] LABS: INR 1.08; PROTIME 14.8 Seconds (11.0-16.0); PTT 28.3 Seconds (22.3-41.8)
[2018-11-19 13:01] LABS: ALB/GLOB RATIO 1.2; ALBUMIN 3.7 g/dL (3.5-5.0); CALCIUM 9.4 mg/dL (8.8-10.2); CREATININE 0.9 mg/dL (0.5-0.9); POTASSIUM 3.7 mmol/L (3.5-5.1); TOTAL BILIRUBIN 0.33 mg/dL (0.20-1.00); TOTAL PROTEIN 6.9 g/dL (6.3-8.3)
[2018-11-19] MEDS ORDERED: LEVAQUIN 500 MG/D5W 500 MG/100 ML IVPB IV ONE (15:34)
[2018-11-19] MEDS ORDERED: LASIX IV ONE (15:34)
--- NOTE | 2018-11-19 15:52 | PROVIDER DOCUMENTATION ---
This chart was entered by Rachael Peralta Scribe, acting as scribe for Tristen Teague MD. HPI-Cardiac General - General Chief Complaint: Chest Pain Stated Complaint: SOB Time Seen by Provider: 11/19/18 12:14 Source: patient Allergies/Adverse Reactions: Patient Allergies Allergy/AdvReac Type Severity Reaction Status Date / Time erythromycin base Allergy Unknown Verified 11/19/18 11:49 Penicillins Allergy Unknown Verified 11/19/18 11:49 sulfamethoxazole Allergy Unknown Verified 11/19/18 11:49 [From Bactrim] trimethoprim [From Bactrim] Allergy Unknown Verified 11/19/18 11:49 Home Medications: Home Medication List Medication Instructions Recorded Confirmed Last Taken Type Acetaminophen [Mapap] 2 tab PO Q6H PRN PRN 10/05/18 10/05/18 Unknown History Albuterol Sulfate [Proair Hfa] 2 puff INH Q4-6H PRN PRN 10/05/18 10/05/18 U nknown History Alendronate Sodium 70 mg PO ORDERED 10/05/18 10/05/18 Unknown History Calcium Carbonate [Calcium Antacid] 500 mg PO Q6H PRN PRN 10/05/18 10/05/18 Unknown History Cholecalciferol (Vitamin D3) 2,000 unit PO DAILY 10/05/18 10/05/18 Unknown History [Vitamin D3] Cyanocobalamin (Vitamin B-12) 2 tab PO DAILY 10/05/18 10/05/18 Unknown History [Vitamin B-12] Donepezil HCl 5 mg pe PO DAILY 10/05/18 10/05/18 Unknown History Fluticasone/Salmeterol [Advair 1 puff .ROUTE BID 10/05/18 10/05/18 Unknown History 500-50 Diskus] Prednisone 2.5 mg PO DAILY 10/05/18 10/05/18 Unknown History Sertraline HCl 0.5 tab PO DAILY 10/05/18 10/05/18 Unknown History Aspirin 81 mg PO DAILY chewtab 10/10/18 Unknown Rx Dimethicone/Oxybenzone [place] 1 gm TOP PRN PRN stick 10/10/18 Unknown Rx [Blistex Medicated Abdalla Lip [place]] - History of Present Illness-Cardiac Nature of Presenting Problem: Patient is a 83 year old female who presents to the ED via EMS for A fib with RVR. History of Afib. Denies chest pain. Patient states shortness of breath with exertion. Patient is a poor historian. Quality of Pain: reports: none Severity in ED: mild Onset/Duration: unsure Timing: still present Context/Activities at Onset: reports: light activity Modifying Factors: improves with: nothing Palpitation Quality: fast/pounding heart beat History of arrythmia: reports: A-Fib Associated Symptoms: reports: shortness of breath Similar Symptoms Previously?: Yes Recently Seen Here or By Another Healthcare Provider: Yes Review of Systems - Adult - REVIEW OF SYSTEMS - ADULT Constitutional: reports: no symptoms reported. denies: chills, fever, fatique Eyes: reports: no symptoms reported Ears, Nose, Mouth & Throat: reports: no symptoms reported Cardiovascular: reports: see HPI, irregular heart rate. denies: chest pain, heart murmur Respiratory: reports: see HPI, shortness of breath. denies: cough, wheezing Gastrointestinal: reports: no symptoms reported Genitourinary: reports: no symptoms reported Musculoskeletal: reports: no symptoms reported Integumentary: reports: no symptoms reported Neurological: reports: no symptoms reported Psychiatric: reports: no symptoms reported Endocrine: reports: no symptoms reported Hematologic/Lymphatic: reports: no symptoms reported Allergic/Immunologic: reports: no symptoms reported All Other Systems: Reviewed and Negative Past History - Adult - PAST MEDICAL HISTORY-ADULT Review of Records: reports: Nursing Assessment Review, Medications Reviewed, Social history reviewed & non-contributory. 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 negative: lethargic, slow to respond - EYES Eyes: PERRL/EOMI - HEAD, EARS, NOSE, MOUTH & THROAT HENMT: normocephalic/atraumatic, moist mucous membranes, other (dry mucous membranes). negative: angioedema, hearing deficit - NECK Neck: non-tender, full range of motion, supple, normal inspection - RESPIRATORY Respiratory: chest non-tender, lungs clear, normal breath sounds. negative: crackles, rhonchi - CARDIOVASCULAR Cardiovascular: normal peripheral pulses, tachycardia. negative: systolic murmur - GASTROINTESTINAL (ABDOMEN) Abdominal Exam: normal bowel sounds, non tender, soft. negative: guarding, rebound - MUSCULOSKELETAL Extremity: non-tender, other (2 + pitting edema to LLE. 3 + pitting edema to RLE). negative: deformity, erythema - SKIN Integumentary: normal color, normal turgor, warm/dry. negative: abrasion(s), ecchymosis, erythema - NEUROLOGIC Neurologic: grossly normal. negative: aphasia, facial droop - PSYCHIATRIC Psych/Mental Status: normal mood/affect. negative: anxious, paranoid - HEART Score HEART Score: History: Slightly Suspicious HEART Score: ECG: Non-Specific Repolarization Disturbance/LBBB/PM HEART Score: Age: > or = 65 Years HEART Score: Risk Factors for Atherosclerotic Disease: 1 or 2 Risk Factors HEART Score: Troponin: 1-3x Normal Limit Total HEART Score:: 5 Progress - PLAN OF CARE/RESULTS Progress/Plan/Lab Results: Vital Signs - 8 hr 11/19/18 11:47 11/19/18 15:26 Temperature 98.9 F 98.9 F Pulse Rate 120 H 95 H Respiratory Rate 25 H 19 Blood Pressure 151/95 144/85 O2 Sat by Pulse Oximetry 92 L 96 Laboratory Results - last 24 hr 11/19/18 11/19/18 11/19/18 12:25 12:25 12:25 WBC 18.64 H RBC 3.90 L Hgb 10.8 L Hct 34.5 L MCV 88.5 MCH 27.7 MCHC 31.3 L RDW Std Deviation 14.9 H Plt Count 387 MPV 9.1 Immature Gran % (Auto) 0.3 Neut % (Auto) 90.6 H Lymph % (Auto) 1.6 L [place] % (Auto) 7.4 Eos % (Auto) 0.0 Baso % (Auto) 0.1 Immature Gran # (Auto) 0.06 H Neut # (Auto) 16.89 H Lymph # (Auto) 0.29 L [place] # (Auto) 1.38 H Eos # (Auto) 0.00 Baso # (Auto) 0.02 PT INR PTT (Actin FS) Sodium 136 Potassium 3.7 Chloride 99 Carbon Dioxide 30 Anion Gap 7 BUN 9 Creatinine 0.9 Estimated GFR/1.73 m2 60 BUN/Creatinine Ratio 10 Glucose 119 H Calculated Osmolality 272 Calcium 9.4 Total Bilirubin 0.33 AST 14 ALT 6 L Alkaline Phosphatase 105 H Creatine Kinase 37 Troponin T Rgd-V-Pavqubprfjz Pept 1906 H Total Protein 6.9 Albumin 3.7 Globulin 3.2 Albumin/Globulin Ratio 1.2 Plasma Lactate Urine Source Urine Color Urine Turbidity Urine pH Ur Specific Maribel Urine Protein Ur Glucose (Stick) Ur Ketones (Stick) Urine Blood Urine Nitrite Urine Bilirubin Urobilinogen Dipstick Urine Leukocytes Urine WBC (Auto) Urine RBC (Auto) U Epithel Cells (Auto) Urine Bacteria (Auto) 11/19/18 11/19/18 11/19/18 12:25 12:25 12:25 WBC RBC Hgb Hct MCV MCH MCHC RDW Std Deviation Plt Count MPV Immature Gran % (Auto) Neut % (Auto) Lymph % (Auto) [place] % (Auto) Eos % (Auto) Baso % (Auto) Immature Gran # (Auto) Neut # (Auto) Lymph # (Auto) [place] # (Auto) Eos # (Auto) Baso # (Auto) PT 14.8 INR 1.08 PTT (Actin FS) 28.3 Sodium Potassium Chloride Carbon Dioxide Anion Gap BUN Creatinine Estimated GFR/1.73 m2 BUN/Creatinine Ratio Glucose Calculated Osmolality Calcium Total Bilirubin AST ALT Alkaline Phosphatase Creatine Kinase Troponin T 0.120 H Rxc-U-Zepfhqkiqmq Pept Total Protein Albumin Globulin Albumin/Globulin Ratio Plasma Lactate Urine Source CLEAN CATCH Urine Color YELLOW Urine Turbidity CLEAR Urine pH 7.0 Ur Specific Maribel 1.007 Urine Protein TRACE A Ur Glucose (Stick) NEGATIVE Ur Ketones (Stick) NEGATIVE Urine Blood MODERATE A Urine Nitrite NEGATIVE Urine Bilirubin NEGATIVE Urobilinogen Dipstick NORMAL Urine Leukocytes NEGATIVE Urine WBC (Auto) <10 Urine RBC (Auto) 10-20 A U Epithel Cells (Auto) <10 Urine Bacteria (Auto) NEGATIVE 04/23/19 12:25 WBC RBC Hgb Hct MCV MCH MCHC RDW Std Deviation Plt Count MPV Immature Gran % (Auto) Neut % (Auto) Lymph % (Auto) [place] % (Auto) Eos % (Auto) Baso % (Auto) Immature Gran # (Auto) Neut # (Auto) Lymph # (Auto) [place] # (Auto) Eos # (Auto) Baso # (Auto) PT INR PTT (Actin FS) Sodium Potassium Chloride Carbon Dioxide Anion Gap BUN Creatinine Estimated GFR/1.73 m2 BUN/Creatinine Ratio Glucose Calculated Osmolality Calcium Total Bilirubin AST ALT Alkaline Phosphatase Creatine Kinase Troponin T Ttv-B-Hknefjttvad Pept Total Protein Albumin Globulin Albumin/Globulin Ratio Plasma Lactate 1.2 Urine Source Urine Color Urine Turbidity Urine pH Ur Specific Maribel Urine Protein Ur Glucose (Stick) Ur Ketones (Stick) Urine Blood Urine Nitrite Urine Bilirubin Urobilinogen Dipstick Urine Leukocytes Urine WBC (Auto) Urine RBC (Auto) U Epithel Cells (Auto) Urine Bacteria (Auto) Orders Category Date Time Status cxr [CHEST-1 VIEW] [RAD] Stat Exams 11/19/18 12:16 Completed BLOOD CULTURE [BLDCUL] Stat Lab 11/19/18 12:28 Results CBC WITH ELECTRONIC DIFF [HEME] Stat Lab 11/19/18 12:25 Completed CK PROFILE [SP CHEM] Stat Lab 11/19/18 12:25 Completed COMPREHENSIVE METABOLIC PANEL [CHEM] Stat Lab 11/19/18 12:25 Completed LACTATE, PLASMA [CHEM] Q3H Lab 11/19/18 12:25 Completed PRO B-NATRIURETIC PEPTIDE Stat Lab 11/19/18 12:25 Completed PROTIME WITH INR [COAG] Stat Lab 11/19/18 12:25 Completed PTT [COAG] Stat Lab 11/19/18 12:25 Completed TROPONIN T Stat Lab 11/19/18 12:25 Completed URINALYSIS W/POSS RFLX CULT [URINALYSIS] Stat Lab 11/19/18 12:25 Completed Furosemide [Lasix] Med 11/19/18 15:34 Discontinued 40 mg IV NOW ONE Levofloxacin 500 mg/D5w [Levaquin 500 mg/D5w] Med 11/19/18 15:34 Active 500 mg in 100 ml IV NOW EKG [EKG] Stat Ther 11/19/18 12:17 Draft Result Diagrams: 11/19/18 12:25 11/19/18 12:25 - EKG 1 Time of EKG reading by physician:: 11:58 EKG Read and Signed by:: Tristen Teague EKG Interpretation (*Must complete 3 of following elements*): Abnormal Rate: 130 Rhythm: atrial fibrillation with rapid ventricular response QRS: LVH Comments: septal infarct, age undetermined - XRAY 1 XRAY Study: Chest Impression: See EMR Report ( EXAM: CHEST-1 VIEW 11/19/2018 HISTORY: chest pain TECHNIQUE: AP portable upright at 1230 COMMENT: The inspiration is less optimal than on 10/09/2018. There are coarse interstitial opacities throughout both lungs more so on the lower lobes. This appearance is accentuated by the poor inspiration. Compared to 10/08/2018 there is still less opacification of the right base than on the previous study. IMPRESSION: Mild cardiomegaly and pulmonary fibrosis. Electronically signed by Cale Dorman 11/19/2018 12:43 PM 11/19/18 1243 Interpreting Physician: Cale Dorman MD Dictated Date/Time: 11/19/18 1242 cc: Tristen Teague MD; Paola Garza MD) - CONSULTS/PCP/HOSPITALIST Notification #1 *Consult/PCP/Hospitalist*: JOSHUA Jimenez for Hospitalist Time Discussed: 15:45 Reason/Comments: Dr. Teague consulted with Barbara about patient. Consult Disposition: Will see in ED, Admit Departure - Departure Date of Disposition Decision: 11/19/18 Time of Disposition Decision: 15:46 DIAGNOSIS: Chest pain, Pneumonia, A-fib, CHF (congestive heart failure), Hematuria Disposition: ADMITTED INPATIENT 09 Certified Medical Emergency: Emergent Condition: Fair Referrals and Follow-Ups: Paola Garza MD [Primary Care Provider] - - Critical Care Note This patient required my direct & personal management of CC.: No Attestation - Physician/ ELIGIO Attestation Patient care was provided by Advanced Practice Provider:: No The physician spent face to face time with patient:: Yes Advanced Practice Provider documentation review:: Supervising physician onsite and consulted in the evaluation and care of this patient. The physician did have a face to face encounter with the patient. This chart was documented by the heidi scribe, (Rachael Peralta Scribe) and accurately reflects the services I performed and decisions made by me, Tristen Teague MD, as attested by the provider's signature.
[2018-11-19] MEDS ORDERED: NS NEB INH SCH (17:30)
[2018-11-19] MEDS ORDERED: TYLENOL PO PRN (17:32)
[2018-11-19] MEDS ORDERED: LEVAQUIN 250 MG/D5W 250 MG/50 ML IVPB IV ONE (18:52)
[2018-11-19] MEDS: PULMICORT INH SCH (19:08)
[2018-11-19] MEDS: ATROVENT NEB INH SCH ×2 (19:08→23:50)
[2018-11-19] MEDS: XOPENEX NEB INH SCH ×2 (19:08→23:50)
--- NOTE | 2018-11-19 19:49 | HISTORY AND PHYSICAL ---
ADDENDUM: I agree with most components of the history, physical, assessment, and plan. In brief, Ms. Dan is an 83-year-old lady at assisted living facility with recent episode of Pseudomonas pneumonia. She comes in with chief complaints of chest pain and shortness of breath with cough; however, patient's daughter is at bedside and provides more meaningful history since the patient has dementia. Apparently, since today morning, patient has been complaining of some chest pressure, so the assisted living facility talked with the daughter and the patient was taken to her regular doctor, where she was found to have atrial fibrillation with rapid ventricular rate and suspected pneumonia, so she was sent to the emergency room. Apparently, at primary care doctor's office, she also had fever of 101. At the time of my evaluation, patient states she is intermittently feeling better and worse; however, she is not able to contribute to history meaningfully at the moment. Currently, vitals suggest temperature of 98.9 degrees, pulse 95, respiratory rate 19, blood pressure 144/85, saturating 96% on 2 L nasal cannula. PHYSICAL EXAMINATION: GENERAL: Does not appear in any acute distress. ORAL CAVITY: Moist. LUNGS: Decreased air entry bilateral infrascapular region with crackles. No wheeze or rhonchi. CARDIAC: S1, S2 normal. Irregularly irregular, tachycardic. No murmur, rub, or gallop. ABDOMEN: Soft, nontender. EXTREMITIES: She has bilateral lower extremity edema. NEUROLOGIC: She is alert. She is oriented to herself and the place, not entirely with the situation. Pupils bilaterally equal, reacting to light. She is able to move all extremities above ground level. LABS: Suggestive of leukocytosis, normocytic anemia, normal kidney function, elevated troponins, elevated proBNP. EKG was consistent with intermittent atrial fibrillation and sinus tachycardia with premature atrial contraction. ASSESSMENT: 1. Sepsis, due to right lower lobe pneumonia. 2. Suspected atrial fibrillation with paroxysmal atrial fibrillation with rapid ventricular rate. 3. Acute hypoxic respiratory failure. 4. Normocytic anemia. 5. Elevated troponins, likely in the setting of demand ischemia. PLAN: 1. I will start the patient on broad-spectrum intravenous antibiotics. 2. We will follow up with blood culture, sputum culture, and urine culture data. 3. We will resume most of her home medication as tolerated once the medication reconciliation is complete. 4. Plan of care was discussed with the patient and her daughter at bedside. All of their questions have been answered. cc: Christian Jacob MD
[2018-11-19] MEDS: DEMADEX PO SCH (20:38)
[2018-11-19] MEDS: LOPRESSOR PO SCH ×2 (20:38→21:32)
[2018-11-19] MEDS: ZYVOX 600 MG/D5W 600 MG/300 ML IVPB IV SCH (20:39)
--- NOTE | 2018-11-19 21:26 | HISTORY AND PHYSICAL ---
PRIMARY CARE PROVIDER: Dr. Paola Garza. CHIEF COMPLAINT: Shortness of breath, chest congestion. HISTORY OF PRESENT ILLNESS: Ms. Ibeth Dan is an 83-year-old female with a medical history of emphysema, hypertension, Sjgren syndrome, and paroxysmal atrial fibrillation. She presented from [facility] to Dr. Paola Garza's office. There, she was found to be short of breath. They did an EKG which revealed atrial fibrillation there, and she was sent to the emergency department from there. Here, she had an EKG performed which also stated atrial fibrillation with RVR, rate 130, but when further reviewing the EKG, it looked more like sinus tachycardia with a rate of 130. Laboratory data here revealed that she has a white count of 18,000. Chest x-ray is not very impressive for pneumonia, but she does sound very congested. We might find it if we did a CT, but instead, we will just go ahead and start treating. Also, her troponins are elevated, but they look chronically elevated. ProBNP is up, but she really does not have a history of congestive heart failure. She just has chronic lower extremity edema. So, we will admit for treatment for pneumonia which is likely healthcare related. PAST MEDICAL HISTORY: 1. Sjgren syndrome. 2. Hyperlipidemia. 3. Hypertension 4. Dementia. 5. Emphysema. 6. Paroxysmal atrial fibrillation. 7. Treated for flu and pneumonia in September 2018. Went to rehab for 21 days. Has been on breathing treatments ever since then. PAST SURGICAL HISTORY: 1. Appendectomy. 2. Hysterectomy. 3. Benign abdominal tumor removed. SOCIAL HISTORY: Denies tobacco, alcohol or illicit drug use. She is living at [facility]. Her daughter at the bedside states that she is not very active there. FAMILY HISTORY: Denies. ALLERGIES: Erythromycin, penicillin and Bactrim. HOME MEDICATIONS: Still have not been verified, but what is listed from September is Advair 500-50, alendronate sodium 70 mg p.o. as directed, calcium carbonate 500 mg p.o. every 6 hours p.r.n., Aricept 5 mg p.o. daily, Tylenol 650 mg p.o. every 6 hours p.r.n., prednisone 2.5 mg p.o. daily, ProAir 2 puffs inhaled every 4-6 hours p.r.n., Zoloft 12.5 mg p.o. daily, vitamin B12 1000 mcg p.o. daily, vitamin D3 2000 units p.o. daily, aspirin 81 mg p.o. daily, Blistex topical as needed. REVIEW OF SYSTEMS: Difficult to obtain from her. She has complained of some shortness of breath with activity. Apparently she did throw up in the car on the way over here. There was a reported 101.[address] Paola Garza's office, and the daughter states that at [facility] she was screaming and hollering this morning. PHYSICAL EXAMINATION: VITAL SIGNS: Temperature 98.9, heart rate 90, respiratory rate 19, blood pressure 144/85, O2 saturation 96% on 2 liters. GENERAL: Ms. Ibeth Dan is an 83-year-old female. She is essentially resting between conversation. She does have confused conversation, but she is being very pleasant at the moment. HEENT: Atraumatic, normocephalic. Pupils equal, round, and reactive to light. Extraocular movements intact. Mucous membranes are dry. NECK: Trachea midline. CARDIOVASCULAR: S1 and S2. Regular rate and rhythm. No rubs, gallops or murmurs. She has 3+ lower extremity edema, maybe even a little bit of redness in the right lower pickens area. Has +2 dorsalis and radial pulses. Negative for JVD or carotid bruits. PULMONARY: Mild coarseness in the upper lobes, decreased in the bases. No accessory muscle use or work of breathing noted. GI: Soft, nontender, nondistended. Positive bowel sounds x4. EXTREMITIES: Decreased range of motion and decreased strength, but it is all generalized. SKIN: Warm, dry and intact except for the right pickens area, which has a little hue of red and warmth to it. LABORATORY DATA: White blood cells 18,000, hemoglobin 10, hematocrit 34, platelet count 387, INR 1.08, PTT 28.3. Sodium is 136, potassium 3.7, BUN 9, creatinine 0.9, glucose 119, calcium 9.4. Bilirubin 0.33. AST 14, ALT 6. CK 37. Troponins, the first one was 0.12 and the second one 0.11. ProBNP was 1906. Serum lactate 1.2. Urinalysis: Trace protein, moderate blood,10-20 red blood cells. Otherwise negative. IMAGING: Chest x-ray: Mild cardiomegaly and pulmonary fibrosis. EKG shows atrial fibrillation with RVR, rate 130, but when further reviewing the EKG, it really looks like normal sinus rhythm but sinus tachycardia. ASSESSMENT/PLAN: 1. Leukocytosis with high suspicion for pneumonia. She is coughing up clear to green color. She has had fever of 101.[address] Paola Garza's office today. She has had more shortness of breath with activity, so she will be started on Levaquin and Zyvox for treatment. She will have nebulizers, Xopenex, Atrovent, budesonide. 2. Emphysema. Please see number 1 for treatment of nebulizers. 3. Paroxysmal atrial fibrillation. I believe she is in sinus tachycardia now. Rate needs to be more controlled, and so she is going to be started on Lopressor 25 mg p.o. twice a day. 4. Hypertension. She will be on metoprolol. 5. Dementia. Once all medications are verified, will resume those. 6. Deep venous thrombosis prophylaxis with sequential compression devices. 7. Bilateral chronic lower extremity edema. It looks like she got Lasix in the emergency room, and she is getting a dose of torsemide as well that will be started, 20 mg p.o. daily. 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 Dictated by JOSHUA Wong for Christian Jacob MD cc: JOSHUA Wong MD I agree with most component of history, physical, assessment and plan. A separate addendum has been dictated. [facility]
[2018-11-20] MEDS: XOPENEX NEB INH SCH ×4 (04:57→16:25)
[2018-11-20] MEDS: ATROVENT NEB INH SCH ×6 (04:57→23:10)
[2018-11-20] MEDS: PULMICORT INH SCH ×2 (07:20→20:00)
[2018-11-20 07:46] LABS: BASO# 0.01 X1000 (0.0-0.2); BASO% 0.1 % (0.0-0.8); EOS# 0.05 X1000 (0.0-0.7); EOS% 0.4 % (0.0-10.0); HEMATOCRIT 33.3 % (37.0-47.0); HEMOGLOBIN 10.5 g/dL (12.0-16.0); IMM GRAN# 0.04 X1000 (0.0-0.04); IMM GRAN% 0.3 % (0.0-0.5); LYMPH# 1.15 X1000 (1.2-3.4); LYMPH% 9.2 % (20.5-51.1); MCH 27.7 PG (27-31); MCHC 31.5 g/dL (33-37); MCV 87.9 FL (81-99); MONO# 1.71 X1000 (0.11-0.59); MONO% 13.7 % (1.7-9.3); MPV 9.5 FL (7.4-10.4); NEUT# 9.54 X1000 (1.4-6.5); NEUT% 76.3 % (42.2-75.2); PLT 351 X1000 (130-400); RBC 3.79 XMIL (4.2-5.4); RDW 14.9 % (11.5-14.5)
[2018-11-20 08:13] LABS: ALB/GLOB RATIO 0.8; CALCIUM 8.9 mg/dL (8.8-10.2); POTASSIUM 3.4 mmol/L (3.5-5.1); TOTAL BILIRUBIN 0.58 mg/dL (0.20-1.00); TOTAL PROTEIN 6.7 g/dL (6.3-8.3)
--- NOTE | 2018-11-20 08:42 | Diag Imaging Result Doc PS360 ---
EXAM: CHEST-2 VIEWS HISTORY: Pneumonia TECHNIQUE: Chest three views COMPARISON: 11/19/2018 FINDINGS: The lungs are hyperexpanded. There are small pleural effusions. Interstitial markings are less pronounced on the current study. Heart is borderline mildly prominent. There is likely a small hiatal hernia. IMPRESSION: Interval improvement. Electronically signed by Tyron Demarco 11/20/2018 8:39 AM
[2018-11-20] MEDS: LOPRESSOR PO SCH ×2 (09:24→20:12)
[2018-11-20] MEDS: ZYVOX 600 MG/D5W 600 MG/300 ML IVPB IV SCH (09:24)
[2018-11-20] MEDS: DEMADEX PO SCH (09:24)
[2018-11-20] MEDS ORDERED: LEVAQUIN 500 MG/D5W 500 MG/100 ML IVPB IV SCH (15:00)
[2018-11-20] MEDS ORDERED: HALDOL IV PRN (16:05)
--- NOTE | 2018-11-20 16:26 | EKG Report ---
Test Performed on : 11/20/2018 4:12:55 PM Test Reason : Follow up Atrial fibrillation Blood Pressure : / mmHG Vent. Rate : 091 BPM Atrial Rate : 094 BPM P-R Int : 000 ms QRS Dur : 076 ms QT Int : 380 ms P-R-T Axes : 000 002 033 degrees QTc Int : 467 ms Atrial fibrillation. Moderate voltage criteria for LVH, may be normal variant Abnormal ECG When compared with ECG of 19-NOV-2018 11:58, (Unconfirmed) Criteria for Septal infarct are no longer present Confirmed by Andi PAULA, Jean ([id number]) on 11/21/2018 8:46:26 AM
[2018-11-20] MEDS ORDERED: TUMS PO PRN (17:53)
--- NOTE | 2018-11-20 18:26 | PROGRESS NOTE ---
DATE: 11/20/2018 INTERVAL HISTORY: Overnight the patient was a little agitated, and she has had sundowning concerning her dementia. Today morning she was also pulling out her IV line and the nurse had requested me to order some chemical restraints if needed. SUBJECTIVE: The patient is feeling fine. She is eating her meal. The patient's daughter is at bedside. She thinks the patient is feeling better. Currently the patient denies any new complaints. The patient's sputum has not been collected, as she is not bringing something up. OBJECTIVE: Currently vital signs suggest temperature 98 degrees, pulse 84, respiratory rate 18, blood pressure 110/50, saturating 97% on room air. General: She does not appear in any acute distress. Oral cavity is moist. She has decreased air entry, bilateral infrascapular region with crackles. No wheeze or rhonchi. S1, S2 normal, irregularly irregular. Not tachycardic. No murmur, rub or gallop. Abdomen is soft, nontender. She has mild bilateral lower extremity edema, which has improved from yesterday. She is alert. She is oriented to herself, and she tells me that this is hospital but she is not entirely oriented to the situation. She is eating her dinner at the moment. LABORATORY DATA: Labs suggestive of improving leukocytosis, normocytic anemia, hyponatremia, hypochloremia and hypokalemia, which is being replenished. ASSESSMENT AND PLAN: 1. Sepsis due to right lower lobe pneumonia. Continue current antibiotics of intravenous levofloxacin and linezolid. Follow up with urine antigens as well as final blood culture results. Accordingly, the antibiotics could be changed to p.o. levofloxacin tomorrow. 2. Acute hypoxic respiratory failure. Currently the patient is breathing well on room air. Continue albuterol/ipratropium nebulization, budesonide, and oxygenation if required. 3. Atrial fibrillation with rapid ventricular rate. The patient has been started on metoprolol, which is controlling her heart rate better. I discussed the [id number] score which is more than 2 in her case, and that she might benefit from anticoagulation; however, there are also associated risks with that. After discussion of risk versus benefit with the patient's daughter, we mutually decided to keep the patient on baby aspirin only, which I have resumed. 4. Others: History of dementia. I will continue home donepezil and will add p.r.n. haloperidol as required. I will also continue home sertraline. 5. Bilateral lower extremity edema. I will resume her home torsemide. 6. Suspected aspiration. Speech evaluation has been ordered. 7. Disposition: The patient's condition has significantly improved since presentation. I will follow up with repeat blood count and BMP tomorrow. If those are stable, my plan would be to change her antibiotics to p.o. levofloxacin and discharge her home. If speech evaluation has not been done by that time, she may just get speech evaluation at her assisted living facility as an outpatient if possible. The patient's daughter would like me to discharge her after 3 p.m. so that she can come by and pick her up. Assisted living social media community manager team is on board, and assisted living facility should be informed about discharge tomorrow morning, so that they can come by and evaluate her as well. cc: Christian Jacob MD
[2018-11-20] MEDS ORDERED: LEVAQUIN 750 MG/D5W 750 MG/150 ML IVPB IV SCH (19:00)
[2018-11-20] MEDS: POTASSIUM CHLORIDE 10% LIQUID PO SCH (19:41)
[2018-11-20] MEDS ORDERED: ATIVAN IV ONE (20:40)
[2018-11-21] MEDS: POTASSIUM CHLORIDE 10% LIQUID PO SCH (00:45)
[2018-11-21] MEDS: ATROVENT NEB INH SCH ×4 (03:31→16:50)
[2018-11-21] MEDS: ZYVOX 600 MG/D5W 600 MG/300 ML IVPB IV SCH (05:22)
[2018-11-21] MEDS: PULMICORT INH SCH (07:26)
[2018-11-21 07:51] LABS: BASO# 0.02 X1000 (0.0-0.2); BASO% 0.2 % (0.0-0.8); EOS# 0.05 X1000 (0.0-0.7); EOS% 0.5 % (0.0-10.0); HEMATOCRIT 31.5 % (37.0-47.0); HEMOGLOBIN 9.9 g/dL (12.0-16.0); IMM GRAN# 0.04 X1000 (0.0-0.04); IMM GRAN% 0.4 % (0.0-0.5); LYMPH# 1.34 X1000 (1.2-3.4); LYMPH% 14.1 % (20.5-51.1); MCH 27.3 PG (27-31); MCHC 31.4 g/dL (33-37); MONO# 1.27 X1000 (0.11-0.59); MONO% 13.4 % (1.7-9.3); MPV 9.2 FL (7.4-10.4); NEUT# 6.78 X1000 (1.4-6.5); NEUT% 71.4 % (42.2-75.2); PLT 371 X1000 (130-400); RBC 3.62 XMIL (4.2-5.4)
[2018-11-21 08:19] LABS: CALCIUM 8.7 mg/dL (8.8-10.2); CREATININE 0.9 mg/dL (0.5-0.9); POTASSIUM 3.5 mmol/L (3.5-5.1)
[2018-11-21] MEDS ORDERED: VITAMIN D PO SCH (09:00)
[2018-11-21] MEDS ORDERED: ARICEPT PO SCH (09:00)
[2018-11-21] MEDS ORDERED: VITAMIN B-12 PO SCH (09:00)
[2018-11-21] MEDS ORDERED: ZOLOFT PO SCH (09:00)
[2018-11-21] MEDS ORDERED: ASPIRIN PO SCH (09:00)
[2018-11-21] MEDS: LOPRESSOR PO SCH (09:58)
[2018-11-21] MEDS: DEMADEX PO SCH (09:59)
[2018-11-21 12:01] VITALS: BP 125/65
--- NOTE | 2018-11-22 14:29 | DISCHARGE SUMMARY ---
ADMISSION DATE: 11/19/2018 DISCHARGE DATE: 11/21/2018 DISCHARGE DIAGNOSES: 1. Sepsis due to right lower lobe pneumonia. 2. Right lower lobe pneumonia. 3. Acute hypoxemic respiratory failure, resolved. 4. Atrial fibrillation with rapid ventricular response. 5. History of dementia. 6. Bilateral lower extremity edema, mild. 7. Suspected aspiration pneumonia. PROCEDURES PERFORMED: 1. Chest x-ray dated 11/19/2018. Impression: Mild cardiomegaly and pulmonary fibrosis. 2. Chest x-ray dated 11/20/2018. Impression: Small pleural effusion. Interstitial marking. Small hiatal hernia. 3. X-ray on 11/19/2018 showed opacification of the right base. HOSPITAL COURSE: An 83-year-old female with a past medical history of emphysema, hypertension, Sjgren's syndrome, paroxysmal atrial fibrillation, and dementia presented from [facility] to Dr. Paola Garza's office. She was found to be shortness of breath. They did an EKG that showed atrial fibrillation, and sent to the emergency department from there. EKG in the emergency department also showed atrial fibrillation with RVR. The heart rate was in the 130s. [place] [id number]. Chest x-ray is not very impressive for pneumonia, but she did sound congested and probably she had some right lower lobe infiltrate. Troponin's were also elevated, but they have been chronically elevated. She will be treated for pneumonia. She seems to be likely septic with leukocytosis and tachycardia. She was tachypneic, and also a source of infection. The patient was placed on antibiotics. The white blood cells normalized in a couple of days, and she was breathing better to the point that she was not using oxygen at all. Laboratory improved as well. Today, she was basically with minimal symptoms. She was not coughing and not complaining of shortness of breath. Trace lower extremity edema. Last month she was discharge and the torsemide was stopped because of acute kidney injury. She seems to be okay today, but I will hold it upon discharge again. We will monitor this as an outpatient. She will go back to the assisted living. She will be re-evaluated by her primary doctor in a week. This patient seems to be stable. DISCHARGE EXAMINATION: Vital Signs: Temperature 97.8 degrees, pulse 99, respiratory rate 20, blood pressure 125/65, and oxygen saturation 98 percent on room air. HEENT: Head normocephalic. No trauma. PERRLA. Neck: Supple. No JVD. No masses. Central trachea. Chest: Clear to auscultation. Some mild scattered crepitus at the bases. Abdomen: Soft, nontender, and nondistended. No hepatosplenomegaly. Extremities: Trace edema. No clubbing or cyanosis. Neurological: The patient is alert. She is oriented x2. She knows she is in the hospital. She knows her date of and name. She is not oriented to time, and she is not quite sure about the situation. LABORATORY: WBC 9.5, hemoglobin 9.9, hematocrit 31.5, and platelets 271,000. Sodium 136, potassium 3.5, chloride 98, bicarbonate 29, BUN 14, creatinine 0.9, glucose 100 and calcium 8.7. DISCHARGE MEDICATIONS: 1. Acetaminophen 650 mg p.o. q.6 hours as needed. 2. Albuterol sulfate 2 puff inhaler q. 4 to 6 hours as needed. 3. Alendronate 70 mg p.o. as directed. 4. Aspirin 81 mg p.o. daily. 5. Calcium carbonate 500 mg p.o. q.6 hours. 6. Cholecalciferol vitamin D3 2000 units p.o. daily. 7. Vitamin B12 2 tablets p.o. daily. 8. Donepezil 5 mg p.o. daily. 9. Advair Diskus 500/50 one puff twice a day. 10. Levofloxacin 500 mg p.o. daily. 11. Metoprolol 25 mg p.o. b.i.d. 12. Pantoprazole 40 mg p.o. daily. 13. Prednisone 2.5 mg p.o. daily. 14. Sertraline 0.[address] Jacob already talked to this patient's daughter about atrial fibrillation. He explained to her that probably this patient needs to be on anticoagulation, but they have decided to stay only on aspirin. TIME SPENT: Time discharging this patient 35 minutes. cc: Dirk Castro MD
== END 2018-11-21 18:27 | DRG 871 ==
LOC: SUPCPDRO → ED 11:36 → SUATTDRO 18:27 → EDIPHOLD 18:27 → 3N 20:50
PROVIDERS: ATTEND Internal Medicine
CPT/HCPCS: 71010; 71020; 71045; 71046; 80048; 80053; 81001; 82550; 83605; 83880; 84145; 84484; 85025; 85610; 85730; 87040; 87275; 87276; 87449; 87804; 87899; 93005; 93010; 94640; 94761; 94799; 96365; 96366; 96368; 96375; 97116; 97162; 99285; A9270; J1630; J1940; J1956; J2020; J2060